=== PATIENT | female | born 1995 | race Caucasian/White ===

== ENCOUNTER 2017-04-13 14:21 | Emergency (ER) | payer OTHER, MEDICAID ==
[~2017-04-13] VITALS: Ht 175.3 cm; Wt 50.0 kg
[2017-04-13 14:22] VITALS: BP 140/89; PULSE 73; RESP 18; TEMP 97.7; O2SAT 98
[2017-04-13] MEDS ORDERED: ONDANSETRON HCL 4 MG/2 ML VIAL IV PUSH ONE (15:45)
[2017-04-13] MEDS ORDERED: SODIUM CHLOR 0.9% 1000 ML INJ 1,000 ML IV SCH (16:09)
[2017-04-13] MEDS ORDERED: diphenhydrAMINE HCL 50 MG/ML VIAL IV PUSH ONE (16:15)
[2017-04-13] MEDS ORDERED: PROCHLORPERAZINE INJ 10 MG/2 ML VIAL IV PUSH ONE (16:15)
[2017-04-13] MEDS ORDERED: KETOROLAC TROMETHAMINE 30 MG/ML (IVP) VIAL IVP ONE (16:15)
[2017-04-13] MEDS ORDERED: SODIUM CHLORIDE 0.9% FLUSH 10 ML FLUSH IV FLUSH PRN (16:15)
--- NOTE | 2017-04-13 16:15 | PD ---
HPI Chief Complaint: GI Complaint Time Seen by Provider: 16:01 Travel History International Travel<30 days: No Contact w/Intl Traveler<30days: No Traveled to known affect area: No History of Present Illness HPI 21-year-old female presents to the emergency department for evaluation of epigastric abdominal pain, vomiting that started on Sunday. Patient states she felt better yesterday, but has been vomiting again today. She states this is too many episodes to count. Patient reports severe, 10/10, epigastric abdominal pain without radiation. According to her grandmother bedside, she has been having these symptoms one time per month for approximately a week for the past 3 months. She states she thinks is associated with her menstrual cycle. No fevers. Patient states laying on her left side will help her pain. No exacerbating factors. Her grandmother states she had her gallbladder out approximately a year ago and now has problems "with her having too much bile". Moderate severity. She denies any chance of . PFSH Past Medical History ?: Not LMP: 04/10/17 Social History Alcohol Use: No Tobacco Use: No Substance Use: No Allergies-Medications (Allergen,Severity, Reaction): Coded Allergies: morphine (Verified Allergy, Severe, Swelling, 04/13/17) Review of Systems Except as stated in HPI: all other systems reviewed are Neg Physical Exam Narrative GENERAL: Well-nourished, well-developed female patient, afebrile. SKIN: Focused skin assessment warm/dry. Patient has erythematous plaques to the abdomen. HEAD: Normocephalic. Atraumatic. EYES: No scleral icterus. No injection or drainage. NECK: Supple, trachea midline. No JVD or lymphadenopathy. CARDIOVASCULAR: Regular rate and rhythm without murmurs, gallops, or rubs. RESPIRATORY: Breath sounds equal bilaterally. No accessory muscle use. Sounds are clear to auscultation. GASTROINTESTINAL: Abdomen soft and nondistended. Patient has tenderness to palpation over the epigastric region.. MUSCULOSKELETAL: No cyanosis, or edema. BACK: Nontender without obvious deformity. No CVA tenderness. Data Data Last Documented VS Vital Signs Date Time Temp Pulse Resp B/P (MAP) Pulse Ox O2 Delivery O2 Flow Rate FiO2 04/13/17 14:22 97.7 73 18 140/89 (106) 98 Room Air Orders Orders Complete Blood Count With Diff (04/13/17 14:45) Comprehensive Metabolic Panel (04/13/17 14:45) Urinalysis - C+S If Indicated (04/13/17 14:45) Iv Access Insert/Monitor (04/13/17 14:45) Oxygen Administration (04/13/17 14:45) Oximetry (04/13/17 14:45) Lipase (04/13/17 14:45) Ondansetron Inj (Zofran Inj) (04/13/17 15:45) Ed Urine Pregnancytest Poc (04/13/17 16:02) Ecg Monitoring (04/13/17 16:09) Sodium Chlor 0.9% 1000 Ml Inj (Ns 1000 M (04/13/17 16:09) Sodium Chloride 0.9% Flush (Ns Flush) (04/13/17 16:15) Electrocardiogram (04/13/17 16:09) Chest, Single Ap (04/13/17 16:09) Ketorolac Inj (Toradol Inj) (04/13/17 16:15) Prochlorperazine Inj (Compazine Inj) (04/13/17 16:15) Diphenhydramine Inj (Benadryl Inj) (04/13/17 16:15) Potassium Chloride (Kcl) (04/13/17 17:30) Potassium Chlor 20 Meq Premix (Kcl 20 Me (04/13/17 17:30) Hydromorphone Pf Inj (Dilaudid Pf Inj) (04/13/17 18:15) Labs Laboratory Tests Test 04/13/17 15:30 04/13/17 16:40 White Blood Count 8.4 TH/MM3 Red Blood Count 4.84 MIL/MM3 Hemoglobin 14.0 GM/DL Hematocrit 40.6 % Mean Corpuscular Volume 83.9 FL Mean Corpuscular Hemoglobin 29.0 PG Mean Corpuscular Hemoglobin Concent 34.6 % Red Cell Distribution Width 13.9 % Platelet Count 279 TH/MM3 Mean Platelet Volume 8.6 FL Neutrophils (%) (Auto) 81.8 % Lymphocytes (%) (Auto) 13.4 % Monocytes (%) (Auto) 4.3 % Eosinophils (%) (Auto) 0.0 % Basophils (%) (Auto) 0.5 % Neutrophils # (Auto) 6.9 TH/MM3 Lymphocytes # (Auto) 1.1 TH/MM3 Monocytes # (Auto) 0.4 TH/MM3 Eosinophils # (Auto) 0.0 TH/MM3 Basophils # (Auto) 0.0 TH/MM3 CBC Comment DIFF FINAL Differential Comment Blood Urea Nitrogen 7 MG/DL Creatinine 0.79 MG/DL Random Glucose 105 MG/DL Total Protein 7.3 GM/DL Albumin 4.0 GM/DL Calcium Level 8.5 MG/DL Alkaline Phosphatase 71 U/L Aspartate Amino Transf (AST/SGOT) 31 U/L Alanine Aminotransferase (ALT/SGPT) 23 U/L Total Bilirubin 1.1 MG/DL Sodium Level 141 MEQ/L Potassium Level 2.9 MEQ/L Chloride Level 106 MEQ/L Carbon Dioxide Level 26.9 MEQ/L Anion Gap 8 MEQ/L Estimat Glomerular Filtration Rate 94 ML/MIN Lipase 77 U/L Urine Color YELLOW Urine Turbidity CLEAR Urine pH 7.0 Urine Specific [place] 1.019 Urine Protein TRACE mg/dL Urine Glucose (UA) NEG mg/dL Urine Ketones 40 mg/dL Urine Occult Blood MOD Urine Nitrite NEG Urine Bilirubin NEG Urine Urobilinogen LESS THAN 2.0 MG/DL Urine Leukocyte Esterase NEG Urine RBC 1 /hpf Urine WBC 2 /hpf Urine Squamous Epithelial Cells 1 /hpf Urine Mucus FEW /lpf Microscopic Urinalysis Comment CULT NOT INDICATED MDM Medical Decision Making Medical Screen Exam Complete: Yes Emergency Medical Condition: Yes Medical Record Reviewed: Yes Interpretation(s) Chest x-ray - CONCLUSION: The lungs are clear. Differential Diagnosis Gastritis versus gastroenteritis versus pancreatitis versus UTI Narrative Course 21-year-old female presents to the emergency department for evaluation of abdominal pain, vomiting. CBC, CMP, lipase, UA, urine test are ordered and pending. Patient received Zofran 4 mg IV in triage. Patient is given normal saline 1 L IV bolus, Toradol 30 mg IV, Compazine 10 mg IV, Benadryl [address] abdomen/pelvis with IV contrast is ordered and pending. However, patient's mother arrived, she instructed me the patient CT abdomen/ pelvis done at [facility] 2 days ago. I will obtain these records. CBC shows no acute abnormality. CMP shows hypokalemia at 2.9. Lipase is 77. UA shows 40 ketones, moderate occult blood. UPT is negative. Chest x-ray shows the lungs are clear. Patient is given potassium 20 mEq IV and 40 mEq by mouth. Patient has not had any vomiting since my exam. I obtained records of [facility]. Patient was seen on February 08, 2018. She had labs, CT abdomen/pelvis completed. CT showed no acute findings. Patient was discharged home prescription for [place], Phenergan, Zofran. Patient will be discharged. She is instructed to follow-up with wood cutter and pearl fisherman. Her mother verbalizes agreement. Patient is requesting prescription for more Phenergan. This will be given. Diagnosis Primary Impression: Hypokalemia Additional Impressions: Abdominal pain Qualified Codes: R10.13 - Epigastric pain Vomiting Qualified Codes: G43.A0 - Cyclical vomiting, not intractable Referrals: [facility] Rn Lead Android Developer Patient Instructions: Abdominal Pain (ED), General Instructions, Hypokalemia ( ED) Additional Instructions: Continue pain medication as directed as needed. Continue nausea medications as needed. Follow up with wood cutter/pearl fisherman. Return to the emergency emergency department for any acute, worsening of symptoms. Med/Other Pt SpecificInfo: Prescription(s) given Scripts Promethazine Supp (Phenergan Supp) 25 Mg Supp 25 MG RECTAL Q6H Y for NAUSEA OR VOMITING, #24 SUPP 0 Refills Prov: Glenis Burks 04/13/17 Promethazine (Phenergan) 25 Mg Tablet 25 MG PO Q6H Y for NAUSEA OR VOMITING, #24 TAB 0 Refills Prov: Glenis Burks 04/13/17 Disposition: 01 DISCHARGE HOME Condition: Stable Glenis Burks Apr 13, 2017 16:15
[2017-04-13 16:21] LABS: AUTOMATED NEUTROPHIL # 6.9 TH/MM3 (1.8-7.7); BASOPHIL % 0.5 % (0.0-2.0); HEMATOCRIT 40.6 % (35.0-46.0); LYMPH % 13.4 % (9.0-44.0); LYMPHOCYTE # 1.1 TH/MM3 (1.0-4.8); MEAN CELL VOLUME 83.9 FL (80.0-100.0); MEAN CORPUSCULAR HGB CONC 34.6 % (32.0-36.0); MEAN PLATELET VOLUME 8.6 FL (7.0-11.0); MONO % 4.3 % (0.0-8.0); MONOCYTE # 0.4 TH/MM3 (0-0.9); NEUT % 81.8 % (16.0-70.0); PLATELET COUNT 279 TH/MM3 (150-450); RED BLOOD COUNT 4.84 MIL/MM3 (4.00-5.30); RED CELL DISTRIBUTION WIDTH 13.9 % (11.6-17.2); WHITE BLOOD COUNT 8.4 TH/MM3 (4.0-11.0)
[2017-04-13 16:58] LABS: AST (GOT) 31 U/L (16-38); BICARBONATE 26.9 MEQ/L (21.0-32.0); BLOOD UREA NITROGEN 7 MG/DL (7-18); CALCIUM 8.5 MG/DL (8.5-10.1); CHLORIDE 106 MEQ/L (98-107); CREATININE 0.79 MG/DL (0.50-1.00); GLOMERULAR FILTRATION RATE 94 ML/MIN (>89); GLUCOSE,RANDOM 105 MG/DL (74-106); SODIUM (NA) 141 MEQ/L (136-145)
[2017-04-13 16:59] LABS: ALKALINE PHOSPHATASE 71 U/L (45-117); ALT (GPT) 23 U/L (9-42); TOTAL BILIRUBIN ADULT 1.1 MG/DL (0.2-1.0); TOTAL PROTEIN 7.3 GM/DL (6.4-8.2)
--- NOTE | 2017-04-13 17:11 | RADRPT ---
EXAM DATE/TIME: 04/13/2017 16:43 [place] COMPARISON: No previous studies available for comparison. INDICATIONS : Patient has been vomiting since [place]. MEDICAL HISTORY : None. SURGICAL HISTORY : Cholecystectomy. ENCOUNTER: Initial ACUITY: 4 - 6 days PAIN SCORE: 6/10 LOCATION: all over FINDINGS: A single view of the chest demonstrates the lungs to be symmetrically aerated without evidence of mas s, infiltrate or effusion. The cardiomediastinal contours are unremarkable. Osseous structures are intact. CONCLUSION: The lungs are clear. Gregg Farris MD on April 13, 2017 at 17:09 Board Certified Radiologist. This report was verified electronically.
[2017-04-13] MEDS ORDERED: POTASSIUM CHLORIDE 20 MEQ CONTROLLED RELEASE TAB PO ONE (17:30)
[2017-04-13] MEDS ORDERED: POTASSIUM CHLOR 20 MEQ PREMIX 100 ML IV ONE (17:30)
[2017-04-13 17:32] LABS: BILIRUBIN, URINE NEG (NEG); BLOOD, URINE MOD (NEG); GLUCOSE,URINE NEG (NEG); KETONE, URINE 40 mg/dL (NEG); MUCUS URINE FEW /lpf (OCC); NITRITE,URINE NEG (NEG); SQUAMOUS EPITHELIAL CELL URINE 1 /hpf (0-5); URINE COLOR YELLOW (YELLW/STRAW); URINE LEUKOCYTE ESTERASE NEG (NEG)
[2017-04-13] MEDS ORDERED: HYDROmorphone HCL PF 1 MG/ML VIAL IV PUSH ONE (17:45)
[2017-04-13 18:00] VITALS: BP 132/89; PULSE 72; RESP 17; O2SAT 98
[2017-04-13] MEDS ORDERED: HYDROmorphone HCL PF 2 MG/ML VIAL IV ONE (18:15)
[2017-04-13] MEDS ORDERED: PROM1SUP7 RECTAL (19:25)
[2017-04-13] MEDS ORDERED: PROM25TA10 PO (19:25)
--- NOTE | 2017-04-13 23:07 | EKG ---
Date Performed: 04/13/2017 Time Performed: 16:59:53 PTAGE: 21 years EKG: Sinus rhythm WITH PAC'S BORDERLINE RIGHT AXIS DEVIATION POSSIBLE RIGHT VENTRICULAR CONDUCTION DELAY ABNORMAL RHYT HM ECG NO PREVIOUS TRACING DOCTOR: Rustam Mckeon Interpretating Date/Time 04/13/2017 23:06:09
== END 2017-04-13 20:23 | disposition home or self-care (01) ==
LOC: NEPC 14:21
DX: R10.13 Epigastric pain (principal); R11.10 Vomiting, unspecified; E87.6 Hypokalemia; R94.31 Abnormal electrocardiogram [ECG] [EKG]; Z88.5 Allergy status to narcotic agent
CPT/HCPCS: 71045; 80053; 81001; 83690; 84703; 85025; 93005; 96361; 96374; 96375; 99285; J0780; J1170; J1200; J1885; J2405; J3480; J7030

== ENCOUNTER 2017-08-10 20:43 | Emergency (ER) | payer OTHER, MEDICAID ==
[~2017-08-10] VITALS: Ht 175.3 cm; Wt 47.2 kg
[~2017-08-10 20:43] MED LIST: PROM1SUP7 RECTAL; PROM25TA10 PO
[2017-08-10 21:04] VITALS: BP 130/87; PULSE 119; RESP 16; TEMP 98.5; O2SAT 95
--- NOTE | 2017-08-10 22:03 | PD ---
HPI Chief Complaint: Psychiatric Symptoms Time Seen by Provider: 21:30 Travel History International Travel<30 days: No Contact w/Intl Traveler<30days: No Traveled to known affect area: No History of Present Illness HPI 21-year-old white female presents emergency department requesting psychological evaluation. She states that she is tired of living. She does not want to live anymore although she does not feel suicidal. She has no plan on self-harm. She states that she has cut herself in the past but has not cut in the last several months. She has been under the care of a psychiatrist at the [facility] in [place]. She has a history of chronic cyclical vomiting. She was just seen at [facility] last week after being admitted for the same. She states that she has had chronic problems with vomiting, anxiety and depression. She does admit to smoking a gram of marijuana a day but has not smoked as much over the last 2 weeks. She did smoke earlier before coming into the ER because she felt so stressed out. She reports that she had her gallbladder removed over a year ago and and that has actually exacerbated her symptoms. When she was seen at [facility] she was noted to have dilated intrahepatic ducts and dilation of the liver according to the patient. Currently the patient denies any nausea or vomiting. She has had no fever chills. No abdominal pain or urinary symptoms. She denies any active plan on self-harm. No homicidal ideation. No toxic ingestions. She denies tobacco and alcohol. Denies . PFSH Past Medical History Narrative Medical Cyclical vomiting, anxiety, depression, substance abuse Anxiety: Yes Depression: Yes Medical other: Yes (SOCIAL PHOBIA) Tetanus Vaccination: < 5 Years Influenza Vaccination: No ?: Not LMP: 07/18/17 : 0 Past Surgical History Cholecystectomy: Yes Social History Alcohol Use: No Tobacco Use: No Substance Use: Yes (MJ) Allergies-Medications (Allergen,Severity, Reaction): Coded Allergies: morphine (Verified Allergy, Severe, Swelling, 08/10/17) Reported Meds & Prescriptions Reported Meds & Active Scripts Active Phenergan Supp (Promethazine HCl) 25 Mg Supp 25 Mg RECTAL Q6H PRN Phenergan (Promethazine HCl) 25 Mg Tablet 25 Mg PO Q6H PRN Review of Systems General / Constitutional: No: Fever Eyes: No: Visual changes HENT: No: Headaches Cardiovascular: No: Chest Pain or Discomfort Respiratory: No: Shortness of Breath Gastrointestinal: No: Nausea, Vomiting, Abdominal Pain Genitourinary: No: Dysuria Musculoskeletal: No: Pain Skin: No Rash Neurologic: No: Weakness Psychiatric: Positive: Anxiety, Depression, Mood Disorder, Substance Abuse, No : Suicidal Ideations, Disorder of Thought, Homicidal Ideation Endocrine: No: Polydipsia Hematologic/Lymphatic: No: Easy Bruising Physical Exam Narrative GENERAL: Well-nourished, well-developed patient. SKIN: Warm and dry. HEAD: Normocephalic and atraumatic. EYES: No scleral icterus. No injection or drainage. ENT: No nasal drainage noted. Mucous membranes pink. Airway patent. NECK: Supple, trachea midline. Moves head freely without obvious discomfort. CARDIOVASCULAR: Regular rate and rhythm without murmurs, gallops, or rubs. RESPIRATORY: Breath sounds equal bilaterally. No accessory muscle use. GASTROINTESTINAL: Abdomen soft, non-tender, nondistended. EXTREMITIES: No cyanosis or edema. BACK: Nontender without obvious deformity. No CVA tenderness. NEURO: Patient is alert and oriented. no sensorimotor deficits. Nonfocal. Normal speech. PSYCH: No delusions. No auditory or visual hallucinations. Data Data Last Documented VS Vital Signs Date Time Temp Pulse Resp B/P (MAP) Pulse Ox O2 Delivery O2 Flow Rate FiO2 08/10/17 21:04 98.5 119 16 130/87 (101) 95 Orders Orders Psych Screen (08/10/17 21:45) Complete Blood Count With Diff (08/11/17 00:21) Comprehensive Metabolic Panel (08/11/17 00:21) Thyroid Stimulating Hormone (08/11/17 00:21) Ed Urine Pregnancytest Poc (08/11/17 00:21) Drug Screen, Random Urine (08/11/17 00:21) Alcohol (Ethanol) (08/11/17 00:21) Labs Laboratory Tests Test 08/11/17 00:15 White Blood Count 7.6 TH/MM3 Red Blood Count 5.07 MIL/MM3 Hemoglobin 14.4 GM/DL Hematocrit 43.6 % Mean Corpuscular Volume 85.9 FL Mean Corpuscular Hemoglobin 28.4 PG Mean Corpuscular Hemoglobin Concent 33.0 % Red Cell Distribution Width 13.6 % Platelet Count 260 TH/MM3 Mean Platelet Volume 9.1 FL Neutrophils (%) (Auto) 44.1 % Lymphocytes (%) (Auto) 42.2 % Monocytes (%) (Auto) 10.8 % Eosinophils (%) (Auto) 1.3 % Basophils (%) (Auto) 1.6 % Neutrophils # (Auto) 3.4 TH/MM3 Lymphocytes # (Auto) 3.2 TH/MM3 Monocytes # (Auto) 0.8 TH/MM3 Eosinophils # (Auto) 0.1 TH/MM3 Basophils # (Auto) 0.1 TH/MM3 CBC Comment DIFF FINAL Differential Comment MDM Medical Decision Making Medical Screen Exam Complete: Yes Emergency Medical Condition: Yes Medical Record Reviewed: Yes Differential Diagnosis MDM: High Differential diagnoses: Schizophrenia, schizoaffective disorder, bipolar, anxiety, depression, adjustment reaction, mood disorder NOS, ODD, depressive disorder NOS, psychosis NOS, substance induced mood disorder, cyclical vomiting , infection,electrolyte abnormality, malingering. Narrative Course Mental health screening discussed with the patient. Psychiatric screen ordered. The patient has been medically cleared. The patient has been evaluated by the psych screener. She agrees that the patient would benefit from an evaluation by the psychiatrist in the morning. The patient will be allowed to stay here in the ER and be seen in the morning. The patient now states that she no longer wants to stay. The patient is at risk for self-harm. The psych screener feels that the patient would benefit from an admission. She does not feel comfortable allowing the patient to go home. The case has been discussed with her mother who stated that she had verbalized suicidal ideation last night and she was going to herself. The [place] act has been initiated to ensure patient safety. The patient was seen by Dr. Bacrlay the ER physician. She does not feel that the patient requires a [place] act to ensure her safety. She feels comfortable discharging her home to her mother. Diagnosis Primary Impression: Depression Additional Impression: Anxiety Patient Instructions: General Instructions Additional Instructions: Rest. Follow-up with the recommendations of Dr. Barclay. Return immediately if any problems develop. Med/Other Pt SpecificInfo: No Meds Exist/No RX given Disposition: 01 DISCHARGE HOME Condition: Stable Álvaro Qureshi Aug 10, 2017 22:03
[2017-08-11 00:41] LABS: AUTOMATED NEUTROPHIL # 3.4 TH/MM3 (1.8-7.7); BASOPHIL # 0.1 TH/MM3 (0-0.2); BASOPHIL % 1.6 % (0.0-2.0); EOSINOPHIL # 0.1 TH/MM3 (0-0.4); EOSINOPHIL % 1.3 % (0.0-4.0); HEMATOCRIT 43.6 % (35.0-46.0); HEMOGLOBIN 14.4 GM/DL (11.6-15.3); LYMPH % 42.2 % (9.0-44.0); LYMPHOCYTE # 3.2 TH/MM3 (1.0-4.8); MEAN CELL VOLUME 85.9 FL (80.0-100.0); MEAN CORPUSCULAR HEMOGLOBIN 28.4 PG (27.0-34.0); MEAN PLATELET VOLUME 9.1 FL (7.0-11.0); MONO % 10.8 % (0.0-8.0); MONOCYTE # 0.8 TH/MM3 (0-0.9); NEUT % 44.1 % (16.0-70.0); PLATELET COUNT 260 TH/MM3 (150-450); RED BLOOD COUNT 5.07 MIL/MM3 (4.00-5.30); RED CELL DISTRIBUTION WIDTH 13.6 % (11.6-17.2); WHITE BLOOD COUNT 7.6 TH/MM3 (4.0-11.0)
--- NOTE | 2017-08-11 01:08 | PD ---
Data Data Last Documented VS Vital Signs Date Time Temp Pulse Resp B/P (MAP) Pulse Ox O2 Delivery O2 Flow Rate FiO2 08/10/17 21:04 98.5 119 16 130/87 (101) 95 Orders Orders Psych Screen (08/10/17 21:45) Complete Blood Count With Diff (08/11/17 00:21) Comprehensive Metabolic Panel (08/11/17 00:21) Thyroid Stimulating Hormone (08/11/17 00:21) Ed Urine Pregnancytest Poc (08/11/17 00:21) Drug Screen, Random Urine (08/11/17 00:21) Alcohol (Ethanol) (08/11/17 00:21) Labs Laboratory Tests Test 08/11/17 00:15 White Blood Count 7.6 TH/MM3 Red Blood Count 5.07 MIL/MM3 Hemoglobin 14.4 GM/DL Hematocrit 43.6 % Mean Corpuscular Volume 85.9 FL Mean Corpuscular Hemoglobin 28.4 PG Mean Corpuscular Hemoglobin Concent 33.0 % Red Cell Distribution Width 13.6 % Platelet Count 260 TH/MM3 Mean Platelet Volume 9.1 FL Neutrophils (%) (Auto) 44.1 % Lymphocytes (%) (Auto) 42.2 % Monocytes (%) (Auto) 10.8 % Eosinophils (%) (Auto) 1.3 % Basophils (%) (Auto) 1.6 % Neutrophils # (Auto) 3.4 TH/MM3 Lymphocytes # (Auto) 3.2 TH/MM3 Monocytes # (Auto) 0.8 TH/MM3 Eosinophils # (Auto) 0.1 TH/MM3 Basophils # (Auto) 0.1 TH/MM3 CBC Comment DIFF FINAL Differential Comment MDM Supervised Visit with JAYLEN: Yes Narrative Course This is a 21-year-old female who presents to the emergency department with history of depression. She came to the emergency department this evening because she has been more depressed and last night she got an argument with her mom and said she wanted herself. She says she has not had any thoughts of hurting herself today but she is frustrated because she has chronic medical illness and has been hospitalized multiple times for cyclic vomiting syndrome. She came in tonight voluntarily because she wanted to talk to a psychiatrist. She was seen by the psych screener who spoke to the patient's mom. The screener was concerned about the patient and thought she should stay to the morning to see a psychiatrist. The patient does not want to stay. She feels anxious in the hospital. She expresses that she is not suicidal and that she wants to follow-up with her outpatient psychiatrist on Sunday. I spoke to her mother who she lives with. Her mother is not worried about her coming home, does not think she is at risk of harming herself and is able to care for her and make sure she gets to her appointment on Sunday. I do not think I can keep the patient against her will as she is not suicidal. Patient will be discharged home. Diagnosis Primary Impression: Depression Qualified Codes: F32.9 - Major depressive disorder, single episode, unspecified Patient Instructions: General Instructions Additional Instruction: If you have thoughts of hurting herself or others or feel unsafe return to the emergency department immediately. Follow-up with your psychiatrist as we discussed on Sunday. Med/Other Pt SpecificInfo: No Change to Meds Disposition: 01 DISCHARGE HOME Condition: Stable Shonda Barclay MD Aug 11, 2017 01:07
[2017-08-11 01:28] LABS: ALT (GPT) 29 U/L (9-42); AST (GOT) 17 U/L (16-38); BICARBONATE 26.6 MEQ/L (21.0-32.0); BLOOD UREA NITROGEN 8 MG/DL (7-18); CALCIUM 8.4 MG/DL (8.5-10.1); CHLORIDE 108 MEQ/L (98-107); CREATININE 0.89 MG/DL (0.50-1.00); GLOMERULAR FILTRATION RATE 82 ML/MIN (>89); GLUCOSE,RANDOM 67 MG/DL (74-106); SODIUM (NA) 143 MEQ/L (136-145)
[2017-08-11 01:38] LABS: ALKALINE PHOSPHATASE 65 U/L (45-117); TOTAL BILIRUBIN ADULT 0.7 MG/DL (0.2-1.0); TOTAL PROTEIN 7.1 GM/DL (6.4-8.2)
== END 2017-08-11 01:19 | disposition home or self-care (01) ==
LOC: NEPD 20:43
DX: F32.9 Major depressive disorder, single episode, unspecified (principal); F12.90 Cannabis use, unspecified, uncomplicated; G43.A0 Cyclical vomiting, in migraine, not intractable; Z79.899 Other long term (current) drug therapy
CPT/HCPCS: 80053; 80307; 84443; 85025; 99283